=== PATIENT | female | born 2005 | race Caucasian/White ===

== ENCOUNTER 2025-05-06 23:48 | Emergency (ER) | payer BC, SELFPAY ==
[2025-05-06 23:51] VITALS: BP 132/95
--- NOTE | 2025-05-07 00:29 | ED.GENMED ---
History of Present Illness
General
Chief Complaint: Abdominal Pain
Source: patient and family
Exam Limitations: none
Time Seen by Provider: 05/07/25 00:05
Nursing documentation reviewed up to this point in time: agreed with
History of Present Illness
History of Present Illness:
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
surgeries, denies
Past History
Past History
ED Past Medical History: Other (PCOS)
Social History
Tobacco: Non-smoker
Alcohol: None
Drug: None
Personal: Single
Living: with roommate
Employment: Employed
Review of Systems
Review of Systems
All Other Systems: Not applicable
Constitutional: Denies fever or fatigue
EENT: Reports no symptoms
Respiratory: Reports no symptoms
Cardiac: Reports no symptoms
ABD/GI: Reports abdominal pain, nausea and vomiting
: Reports no symptoms
Musculoskeletal: Reports no symptoms
Skin: Reports no symptoms
Phy Exam
Physical Exam
Physical Exam:
Physical Exam
General: 20 female looks uncomfortable
Neck: No jaundice
Heart: s1/s2 regular rate and rhythm, no murmur. equal radial pulses.
Lungs: no acute respiratory distress. clear bilaterally
Abdomen: Tender in the right upper greater than right lower abdomen also left lower abdomen
Neuro: alert and oriented. no focal neurological deficits
Skin: no rash
Psychiatric: well kept. interactive and cooperative
Extremities: no edema.
Course
Orders/Labs/Results
Orders:
Orders
05/07/25 00:26
CT Abd/Pel (IV only)-DH only Urgent
Comment:
Reason For Exam: pain
HYDROmorphone [Dilaudid] 1 mg IV NOW STA
Ondansetron Injectable [Zofran] 4 mg IV NOW STA
Test Result ONCE
US Abdomen Limited Urgent
Reason For Exam: pian
05/07/25 00:36
Complete Blood Count/With Diff Urgent
Comprehensive Metabolic Panel Urgent
HCG, Serum Qualitative Screen Urgent
Lipase Urgent
05/07/25 01:42
Diphenhydramine [Benadryl] 25 mg IV NOW STA
Ondansetron Injectable [Zofran] 4 mg IV NOW STA
05/07/25 01:56
Urinalysis Reflex To Culture Urgent
Date Specimen was Collected: 05/07/25
Time Specimen was Collected: 01:55
Urine Microscopic Reflex Cult Urgent
Urine Culture Urgent
RUTHIE Source: U
Specimen Description:
Date Specimen was Collected: 05/07/25
Time Specimen was Collected: 01:55
Abnormal Lab Results
05/07/25 05/07/25
00:36 01:56
WBC 14.6 H 10^3/uL
(4.8-10.8)
Abs Immat Gran (auto) 0.1 H 10^3/uL
(0-0.05)
Absolute Neuts (auto) 12.0 H 10^3/uL
(1.4-6.5)
Absolute Monos (auto) 1.0 H 10^3/uL
(0.1-0.6)
Neutrophils % 82.0 H %
(42.2-75.2)
Lymphocytes % 9.8 L %
(20.5-51.1)
Glucose 101 H mg/dl
(70-99)
Urine Ketones 2+ A
(Negative)
Urine WBC (Reflex) 21-25 A /HPF
(0-5)
Urine Bacteria (Reflex) Many A
(Negative)
Urine Albumin (Reflex) 1+ A
(Neg - Trace)
05/07/25 00:36
05/07/25 00:36
Vital Signs
Initial and Last Documented VS:
Initial Vital Signs
Temp Pulse Resp BP Pulse Ox
98.6 F 78 20 132/95 100
05/06/25 23:51 05/06/25 23:51 05/06/25 23:51 05/06/25 23:51 05/06/25 23:51
Last Documented Vital Signs
Temp Pulse Resp BP Pulse Ox
98.6 F 73 24 139/80 96
05/06/25 23:51 05/07/25 02:15 05/07/25 02:15 05/07/25 00:40 05/07/25 02:15
MDM/Problems Addressed
Differential Diagnosis Includes:
Biliary colic pancreatitis appendicitis diverticulitis ruptured ectopic ruptured ovarian cyst
MDM/Problems Addressed:
Abdominal pain
Chronic conditions affecting care:
PCOS
Acute Exacerbation and/or Progression of Chronic Illness:
PCOS
*Pulse Oximetry
SaO2: 100
Oxygen Mode of Delivery: Room air
Patient hypoxic: no
*Critical Care Note
Total Time (30-74mins, 75-104mins- exclusive of procedures): Not Applicable
Update Note
Update Note:
3:30 AM patient feeling much better abdomen is soft she is passing gas, feels like she may have to have a bowel movement tolerating ice chips reviewed labs and CT scan with her, I do not believe she is obstructed, reviewed inpatient versus
outpatient treatment, I think she can probably be managed as an outpatient with clear liquids with caveat that if her symptoms worsen she needs to come back to the hospital to be reevaluated discussed with patient and mother
ED Attending Note
-
Portions of this chart may have been created with voice recognition software.� Occasional wrong word or��sound alike� substitutions may have occurred due to the inherent limitations of voice recognition software.
Discharge Plan
Departure
Referrals:
UNKNOWN - PT DOES,NOT KNOW [Family Provider]
Interventions
Interventions:
*Risk Screen - Suicide Last Done: 05/06/25 23:51
*General Assessment Last Done: 05/06/25 23:51
*Neglect/Abuse Screening Last Done: 05/06/25 23:51
*ED- Fall Risk Assessment Last Done: 05/06/25 23:51
*ED COVID-19 Vaccine History Last Done: 05/06/25 23:51
*ED Influenza Vaccine History Last Done: 05/06/25 23:51
DA-Gaekch-Pqpibsskde Assessment Last Done: 05/07/25 00:55
Discharge Date and Time
Print Language: ZAMBIAN
[2025-05-07 00:40] VITALS: BP 139/80
[2025-05-07] MEDS: ZOFRAN 4 MG IV ×2 (00:45→01:51)
[2025-05-07] MEDS: DILAUDID 1 MG IV (00:45)
[2025-05-07 00:54] LABS: Hematocrit 41.0 % (37.0-47.0); Hemoglobin 14.4 g/dL (12.0-16.0); Mean Corp Hgb Conc. 35.1 g/dL (33.0-37.0); Mean Corpuscular Volume 86.1 fL (81.0-99.0); Nucleated Red Blood Cells % 0 %; Platelet Count 317 10^3/uL (130-400); Red Cell Dist. Width 12.1 % (11.5-14.5)
[2025-05-07 00:57] VITALS: BMI 39.8
[2025-05-07 01:02] LABS: HCG, Serum Qualitative Screen Negative
[2025-05-07 01:15] LABS: ALT (SGPT) 22 U/L (0-35); AST (SGOT) 21 U/L (14-36); Albumin 4.8 g/dl (3.5-5.0); Alkaline Phosphatase 68 U/L (38-126); Blood Urea Nitrogen 10 mg/dl (7-17); Calcium 9.4 mg/dl (8.4-10.2); Carbon Dioxide 27 mmol/L (22-30); Chloride 103 mmol/L (98-107); Estimated Creatinine Clearance > 125 ml/min; Glucose 101 mg/dl (70-99); Lipase 92 U/L (23-300); Potassium 4.3 mmol/L (3.5-5.1); Sodium 138 mmol/L (135-145); Total Protein 7.2 g/dl (6.3-8.2); eGFR > 60.00
[2025-05-07] MEDS: BENADRYL 25 MG IV (01:51)
[2025-05-07 02:13] LABS: Urine Character Clear (Clear)
[2025-05-07 02:22] LABS: Urine Squamous Cell >30 /LPF (Few); Urine White Cell 21-25 /HPF (0-5)
[2025-05-07 02:23] LABS: Urine Red Blood Cell 0-2 /HPF (0-2)
[2025-05-07 04:00] VITALS: BP 120/71
[2025-05-07] MEDS: BENTYL 20 MG IM (04:01)
== END 2025-05-07 04:21 | disposition home or self-care (01) ==
LOC: EMR 23:48
PROVIDERS: EMERGENCY PHYSICIAN Emergency Medicine
DX: R10.31 Right lower quadrant pain (principal); R11.2 Nausea with vomiting, unspecified; E28.2 Polycystic ovarian syndrome; R56.9 Unspecified convulsions; J45.909 Unspecified asthma, uncomplicated
CPT/HCPCS: 99284; 96374; 96375 ×2; 96372; 96376; 74177; 80053; 81003; 81015; 83690; 84703; 85025; 87086; Q9967